=== PATIENT | male | born 1985 | race Caucasian/White ===

== ENCOUNTER 2018-10-06 18:32 | Emergency (ER) | payer OTHER, SELFPAY ==
[2018-10-06 18:39] VITALS: BP 111/71; PULSE 93; RESP 16; TEMP 37.4; O2SAT 98
[2018-10-06] MEDS: Ibuprofen 600 MG TAB PO (19:00)
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
--- NOTE | 2018-10-06 19:27 | DI.RAD_ITS ---
SYMPTOM/DIAGNOSIS: TRAUMA LEFT HAND: Three views were obtained. There is a mildly displaced fracture of the head of the fourth metacarpal. No other fracture is seen. The distal articular surface does not appear to be involved with the fracture plane.
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
== END 2018-10-06 20:26 | disposition home or self-care (01) ==
PROVIDERS: Emergency Provider Emergency Medicine
DX: S62.395A Other fracture of fourth metacarpal bone, left hand, initial encounter for closed fracture (principal); W22.8XXA Striking against or struck by other objects, initial encounter
CPT/HCPCS: 26600; 73130; L3807